=== PATIENT | female | born 1945 | race Caucasian/White ===

== ENCOUNTER 2019-03-11 12:20 | Emergency (ER) | payer OTHER ==
[~2019-03-11] VITALS: Ht 157.5 cm; Wt 59.0 kg
[~2019-03-11 12:20] MED LIST: CLARITIN10 MG; COZAAR100 MG; HYZAAR 50/12.51 TAB; LEVSINEX0.375 M1 PO; NORVASC5 MG
[2019-03-11] MEDS ORDERED: MICROZIDE12.5 MG (12:48)
[2019-03-11] MEDS ORDERED: PRAVASTATIN SOD20 MG (12:48)
[2019-03-11] MEDS ORDERED: ATACAND32 MG (12:49)
== END 2019-03-11 20:24 | disposition home or self-care (01) ==
LOC: ER 12:20
DX: K52.89 Other specified noninfective gastroenteritis and colitis (principal)

== ENCOUNTER 2021-08-31 20:42 | Emergency (ER) | payer OTHER ==
[~2021-08-31] VITALS: Ht 157.5 cm; Wt 59.0 kg
[~2021-08-31 20:42] MED LIST changes: +ATACAND32 MG; +MICROZIDE12.5 MG; +PRAVASTATIN SOD20 MG
[2021-08-31] MEDS ORDERED: PLAVIX75 MG PO (20:50)
== END 2021-08-31 23:18 | disposition home or self-care (01) ==
LOC: ER 20:42
DX: J06.9 Acute upper respiratory infection, unspecified (principal); I10 Essential (primary) hypertension; Z88.6 Allergy status to analgesic agent

== ENCOUNTER 2022-06-03 14:43 | Emergency (ER) | payer OTHER ==
[~2022-06-03] VITALS: Ht 160 cm; Wt 53.1 kg
[~2022-06-03 14:43] MED LIST changes: +PLAVIX75 MG PO
[2022-06-03] MEDS ORDERED: PRAVASTATIN SOD40 MG (15:07)
[2022-06-03] MEDS ORDERED: AMLODIPINE BESY10 MG (15:08)
[2022-06-03] MEDS ORDERED: METAXALONE400 MG PO (16:47)
[2022-06-03] MEDS ORDERED: MEDROLPACK PO (16:47)
== END 2022-06-03 16:57 | disposition home or self-care (01) ==
LOC: ER 14:43
DX: M54.9 Dorsalgia, unspecified (principal); M19.90 Unspecified osteoarthritis, unspecified site; M41.9 Scoliosis, unspecified; Z88.6 Allergy status to analgesic agent

== ENCOUNTER 2022-06-07 13:31 | Emergency (ER) | payer OTHER ==
[~2022-06-07] VITALS: Ht 162.6 cm; Wt 52.2 kg
[~2022-06-07 13:31] MED LIST changes: +AMLODIPINE BESY10 MG; +MEDROLPACK PO; +METAXALONE400 MG PO; +PRAVASTATIN SOD40 MG
[2022-06-07] MEDS ORDERED: NORFLEX100MG PO (16:42)
== END 2022-06-07 17:03 | disposition home or self-care (01) ==
LOC: ER 13:31
DX: M54.50 Low back pain, unspecified (principal); Z88.6 Allergy status to analgesic agent; E78.00 Pure hypercholesterolemia, unspecified; I10 Essential (primary) hypertension

== ENCOUNTER → 2022-06-26 | Emergency (ER) | payer OTHER ==
[~2022-06-26] VITALS: Ht 160 cm; Wt 56.7 kg
[~2022-06-26] MED LIST changes: +NORFLEX100MG PO; +PRILOSEC OTC20 MG
== END | disposition home or self-care (01) ==
LOC: ER 16:46
DX: M54.50 Low back pain, unspecified (principal); Z88.6 Allergy status to analgesic agent

== ENCOUNTER 2022-07-05 11:57 | Outpatient (CLI) | payer OTHER | END 2022-07-05 12:07 | disposition home or self-care (01) | LOC: TOM 11:57 | PROVIDERS: ATTEND Physical Medicine & Rehabilitation | DX: M41.9 Scoliosis, unspecified (principal); M54.59 Other low back pain; M54.00 Panniculitis affecting regions of neck and back, site unspecified ==

== ENCOUNTER 2022-07-06 13:36 | Outpatient (CLI) | payer OTHER | END 2022-07-06 13:38 | disposition home or self-care (01) | LOC: NUCLEAR 13:36 | PROVIDERS: ATTEND Physical Medicine & Rehabilitation | DX: M54.50 Low back pain, unspecified (principal); M54.09 Panniculitis affecting regions, neck and back, multiple sites in spine ==

== ENCOUNTER 2022-08-11 14:09 | Inpatient (IN) | payer OTHER ==
[~2022-08-11] VITALS: Ht 165.1 cm; Wt 35.4 kg
[2022-08-12] MEDS ORDERED: AMLODIPINE BESY10 MG (09:35)
[2022-08-12] MEDS ORDERED: VITAMIN B-121000 MC2 (09:35)
[2022-08-12] MEDS ORDERED: TRAMADOL HCL50 MG (09:35)
[2022-08-12] MEDS ORDERED: OMEPRAZOLE20 MG (09:35)
[2022-08-12] MEDS ORDERED: PRAVASTATIN SOD40 MG (09:35)
== END 2022-08-19 20:00 | disposition home or self-care (01) | DRG 841 ==
LOC: ER 14:09 → SEC-K 18:26 → MEDJ 08-12 20:41
PROVIDERS: ADMIT Specialist; ATTEND Specialist
PROC: B24BYZZ Ultrasonography of Heart with Aorta using Other Contrast (ICD-10-PCS; 2022-08-11)
PROC: 4A12X4Z Monitoring of Cardiac Electrical Activity, External Approach (ICD-10-PCS; principal; 2022-08-12)
PROC: BW29ZZZ Computerized Tomography (CT Scan) of Head and Neck (ICD-10-PCS; 2022-08-15)
PROC: B020ZZZ Computerized Tomography (CT Scan) of Brain (ICD-10-PCS; 2022-08-17)
PROC: BW21YZZ Computerized Tomography (CT Scan) of Abdomen and Pelvis using Other Contrast (ICD-10-PCS; 2022-08-17)
PROC: BW24YZZ Computerized Tomography (CT Scan) of Chest and Abdomen using Other Contrast (ICD-10-PCS; 2022-08-17)
DX: C90.00 Multiple myeloma not having achieved remission (principal); C34.92 Malignant neoplasm of unspecified part of left bronchus or lung; C79.51 Secondary malignant neoplasm of bone; M46.26 Osteomyelitis of vertebra, lumbar region; Z68.1 Body mass index [BMI] 19.9 or less, adult; M54.16 Radiculopathy, lumbar region; M89.9 Disorder of bone, unspecified; I10 Essential (primary) hypertension; M54.50 Low back pain, unspecified; D53.0 Protein deficiency anemia; Z53.1 Procedure and treatment not carried out because of patient's decision for reasons of belief and group pressure; R63.0 Anorexia

== ENCOUNTER 2022-09-29 07:08 | Outpatient (CLI) | payer OTHER ==
[~2022-09-29 07:08] MED LIST changes: +OMEPRAZOLE20 MG; +TRAMADOL HCL50 MG; +VITAMIN B-121000 MC2
== END 2022-09-29 07:09 | disposition home or self-care (01) ==
LOC: NUCLEAR 07:08
PROVIDERS: ATTEND Internal Medicine Hematology & Oncology
DX: C34.12 Malignant neoplasm of upper lobe, left bronchus or lung (principal); C79.51 Secondary malignant neoplasm of bone; D63.0 Anemia in neoplastic disease; I10 Essential (primary) hypertension; E78.2 Mixed hyperlipidemia
CPT/HCPCS: 78815; A9552

== ENCOUNTER 2023-07-20 08:00 | Outpatient (CLI) | payer OTHER | END 2023-07-20 08:12 | disposition home or self-care (01) | LOC: TOM 08:00 | PROVIDERS: ATTEND Internal Medicine Hematology & Oncology | DX: C34.12 Malignant neoplasm of upper lobe, left bronchus or lung (principal); C79.51 Secondary malignant neoplasm of bone; D63.0 Anemia in neoplastic disease; I10 Essential (primary) hypertension; E78.2 Mixed hyperlipidemia; R94.5 Abnormal results of liver function studies | CPT/HCPCS: 71270; 74178; Q9965 ==

== ENCOUNTER 2023-07-26 08:11 | Outpatient (CLI) | payer OTHER | END 2023-07-26 08:22 | disposition home or self-care (01) | LOC: MRI 08:11 | PROVIDERS: ATTEND Internal Medicine Hematology & Oncology | DX: C34.12 Malignant neoplasm of upper lobe, left bronchus or lung (principal); C79.51 Secondary malignant neoplasm of bone; D63.0 Anemia in neoplastic disease; I10 Essential (primary) hypertension; E78.2 Mixed hyperlipidemia; R94.5 Abnormal results of liver function studies; K82.0 Obstruction of gallbladder | CPT/HCPCS: 74181 ==

== ENCOUNTER 2023-11-20 08:44 | Outpatient (CLI) | payer OTHER ==
[~2023-11-20 08:44] MED LIST changes: +ATACAND32 MG PO; +FENTANYL 050 MCG/11 IJ
== END 2023-11-20 08:45 | disposition home or self-care (01) ==
LOC: NUCLEAR 08:44
PROVIDERS: ATTEND Internal Medicine Hematology & Oncology
DX: C34.12 Malignant neoplasm of upper lobe, left bronchus or lung (principal); C79.51 Secondary malignant neoplasm of bone; D63.0 Anemia in neoplastic disease; I10 Essential (primary) hypertension; E78.2 Mixed hyperlipidemia; R94.5 Abnormal results of liver function studies
CPT/HCPCS: 78816; A9552

== ENCOUNTER 2024-05-16 08:00 | Outpatient (CLI) | payer OTHER | END 2024-05-16 08:01 | disposition home or self-care (01) | LOC: NUCLEAR 08:00 | PROVIDERS: ATTEND Radiology Radiation Oncology | DX: C79.51 Secondary malignant neoplasm of bone (principal); C34.12 Malignant neoplasm of upper lobe, left bronchus or lung | CPT/HCPCS: 78306; A9503 ==

== ENCOUNTER → 2024-05-31 | Outpatient (CLI) | payer OTHER | END | disposition home or self-care (01) | LOC: RAD 11:47 | PROVIDERS: ATTEND Internal Medicine Pulmonary Disease | DX: R05.3 Chronic cough (principal) ==

== ENCOUNTER → 2024-06-12 07:34 | Outpatient (CLI) | payer OTHER | END | disposition home or self-care (01) | LOC: NUCLEAR 07:34 | PROVIDERS: ATTEND Internal Medicine Hematology & Oncology | DX: C34.12 Malignant neoplasm of upper lobe, left bronchus or lung (principal); C79.51 Secondary malignant neoplasm of bone | CPT/HCPCS: 78816; A9552 ==

== ENCOUNTER 2024-07-01 09:58 | Outpatient (CLI) | payer OTHER | END 2024-07-01 10:03 | disposition home or self-care (01) | LOC: MRI 09:58 | PROVIDERS: ATTEND Internal Medicine Hematology & Oncology | DX: C34.12 Malignant neoplasm of upper lobe, left bronchus or lung (principal); C79.51 Secondary malignant neoplasm of bone; C79.70 Secondary malignant neoplasm of unspecified adrenal gland; D63.0 Anemia in neoplastic disease; I10 Essential (primary) hypertension; E78.2 Mixed hyperlipidemia; R94.5 Abnormal results of liver function studies | CPT/HCPCS: 74183; Q9965 ==

== ENCOUNTER 2024-11-15 12:37 | Outpatient (CLI) | payer OTHER | END 2024-11-15 12:50 | disposition home or self-care (01) | LOC: MRI 12:37 | PROVIDERS: ATTEND Specialist | DX: S83.207A Unspecified tear of unspecified meniscus, current injury, left knee, initial encounter (principal); X58.XXXA Exposure to other specified factors, initial encounter; Y93.9 Activity, unspecified; Y92.9 Unspecified place or not applicable; Y99.9 Unspecified external cause status | CPT/HCPCS: 73721 ==